=== PATIENT | female | born 1975 | race Caucasian/White ===

== ENCOUNTER 2022-07-05 14:48 | Outpatient (CLI) | payer BC | END 2022-07-05 14:49 | disposition home or self-care (01) | LOC: CSHMAMMO 14:48 | PROVIDERS: ATTEND Family Medicine | DX: Z12.31 Encounter for screening mammogram for malignant neoplasm of breast (principal); Z80.3 Family history of malignant neoplasm of breast | CPT/HCPCS: 77063; 77067 ==

== ENCOUNTER 2023-10-28 08:38 | Outpatient (CLI) | payer BC | END 2023-10-28 08:39 | disposition home or self-care (01) | LOC: CSHMAMMO 08:38 | PROVIDERS: ATTEND Family Medicine | DX: Z12.31 Encounter for screening mammogram for malignant neoplasm of breast (principal); Z80.3 Family history of malignant neoplasm of breast | CPT/HCPCS: 77063; 77067 ==